=== PATIENT | female | born 1975 | race Hispanic/Latino ===

== ENCOUNTER 2024-01-20 06:25 | Day surgery (SDC) | payer OTHER ==
[2024-01-20] VITALS (15 sets, daily range): BP systolic 105–139; BP diastolic 48–69; PULSE 52–65; RESP 15–17
[~2024-01-20] VITALS: Ht 167.6 cm; Wt 79.4 kg
[~2024-01-20 06:25] MED LIST: AMIO200T68 PO; APIX2.5T PO; CARV12.511 PO; SEVE800T27 PO
[2024-01-20] MEDS: 0.9%NACL 1000ML 1,000 ML IV ONE (07:52)
[2024-01-20] MEDS ORDERED: PROPOFOL 10 MG/ML 20ML VIAL IV ONE (10:30)
[2024-01-20] MEDS ORDERED: LIDOCAINE HCL 1% 20 ML VIAL ONE (10:31)
== END 2024-01-20 12:45 | disposition home or self-care (01) ==
LOC: ENDO 06:25 → DAH 06:25 → ENDO 12:45
PROVIDERS: ATTEND Internal Medicine
DX: Z12.11 Encounter for screening for malignant neoplasm of colon (principal); D12.8 Benign neoplasm of rectum; K57.30 Diverticulosis of large intestine without perforation or abscess without bleeding; I12.0 Hypertensive chronic kidney disease with stage 5 chronic kidney disease or end stage renal disease; N18.6 End stage renal disease; Z99.2 Dependence on renal dialysis; Z79.01 Long term (current) use of anticoagulants; Z79.899 Other long term (current) drug therapy; Z90.49 Acquired absence of other specified parts of digestive tract
CPT/HCPCS: 45380; 84703; 36415; J7030 ×2; J2704; A4620; A4215 ×2; A4223; A4222; A4221; A4663; A4606; J3490